=== PATIENT | female | born 1945 | race Caucasian/White ===

== ENCOUNTER 2016-06-18 11:19 | Day surgery (SDC) | payer MEDICARE ==
[2016-06-11 12:37] LABS: HEMATOCRIT 38.4 % (36.0-48.0); HEMOGLOBIN 12.2 g/dL (12.0-16.0)
[2016-06-11 12:51] LABS: BUN (BLOOD UREA NITROGEN) 19 MG/DL (6-23); CALCIUM, SERUM 8.4 MG/DL (8.5-10.4); CHLORIDE, SERUM 105 MMOL/L (96-112); CO2 (CARBON DIOXIDE) 28 MMOL/L (24-34); CREATININE 0.55 MG/DL (0.55-1.02); GFR AFRICAN AMERICAN 112 ML/MIN (>=60); GFR NON AFRICAN AMERICAN 96 ML/MIN (>=60); SODIUM, SERUM 142 MMOL/L (135-148)
[2016-06-11 12:52] LABS: GLUCOSE, SERUM 134 MG/DL (60-99); POTASSIUM, SERUM 3.4 MMOL/L (3.5-5.3)
[2016-06-11 13:23] LABS: ASCORBIC ACID (UR NOT ORDER) NEG (NEG); BILIRUBIN, URINE NEGATIVE (NEG); KETONE, URINE NEGATIVE (NEG); LEUKOCYTE ESTERASE(NOT OR MOD (NEG); WBC (NOT ORDERED) (RFLEX) 15 (0-5)
--- NOTE | ~2016-06-18 | OP ---
Record Of Operation [facility] [address] [place]. [address] NAME: BIJAL REYNOSO : 49 STATUS : [facility]#: [id number] AGE: 70 ADM/REG DATE : 06/18/16 MR#: [id number] REPORT SERV DATE: 06/18/16 DICTATED BY: SUNG BARGER DATE: 06/18/16 REPORT STATUS : Draft TRANSCRIBED BY: MODL DATE: 06/18/16 DATE OF PROCEDURE: 06/18/2016 SURGEON: Sung Barger M.D. TITLE OF OPERATION: Cystourethroscopy, left retrograde pyelogram, left ureteroscopy with laser lithotripsy, and placement of 6 x 24 left ureteral stent. PREOPERATIVE DIAGNOSIS: Left renal stone. POSTOPERATIVE DIAGNOSIS: Left renal stone. INDICATIONS: Ms. Reynoso is a very pleasant 70-year-old female, with a 1.3 cm lower pole left renal stone. She is here for therapy. ANESTHESIA: General. COMPLICATIONS: None. IMPLANT: 6 x 24 left ureteral stent. SPECIMENS: None. NARRATIVE: The patient was brought to the operating room, identified by her wristband. General anesthesia was induced and Ancef was given for preoperative antibiotics. She was placed in dorsal lithotomy position, prepped and draped in sterile fashion. A cystoscope was placed into her urethra and into her bladder. The bladder was inspected. There was no tumors or abnormalities. The left ureteral orifice was identified and cannulated with a Sensor wire. The stone was radio-opaque on fluoroscopy. A median access sheath was placed into her proximal ureter over the wire under fluoroscopic guidance. A flexible ureteroscope was then placed through the sheath and into the kidney. The kidney was systematically inspected. Her only abnormality was the 1.3 cm stone in the lower pole of her left kidney. Using 200 micron holmium laser fiber and a 100-watt laser, the stone was dusted into innumerable submillimeter pieces. There were no visible stone fragments on KUB. There was no stones larger than a millimeter visually either. The ureter was inspected. The sheath was removed. A Sensor wire was placed back up into the kidney. A 6 x 24 ureteral stent was placed in standard fashion. The proximal coil was seen to be coiled in the upper pole. The distal coil was coiled in the bladder under direct vision. The bladder was drained. The patient was awoken from anesthesia and transferred to the recovery room in stable condition. I will see her back in one week for cystoscopy and stent removal. SARAHY/CHENCHO Sung Gomez Record Of [address] [address] NAME: BIJAL REYNOSO : 49 STATUS : [facility] PAT#: [id number] AGE: 70 ADM/REG DATE : 06/18/16 MR#: [id number] REPORT SERV DATE: 06/18/16 DICTATED BY: SUNG BARGER DATE: 06/18/16 REPORT STATUS : Draft TRANSCRIBED BY: CHENCHO DATE: 06/18/16 MD Denita / [id number] CC: MD Trace Shen M.D.
[~2016-06-18 11:19] MED LIST: GLUMETZA500 MG PO; MOBIC7.5 PO; NEXIUM20 M1 PO; PRIN20 PO
== END 2016-06-18 16:52 | disposition home or self-care (01) ==
LOC: SDC 11:19
PROVIDERS: Urology
PROC: 0T778DZ Dilation of Left Ureter with Intraluminal Device, Via Natural or Artificial Opening Endoscopic (ICD-10-PCS; 2016-06-18)
PROC: BT1FZZZ Fluoroscopy of Left Kidney, Ureter and Bladder (ICD-10-PCS; 2016-06-18)
PROC: 0TF48ZZ Fragmentation in Left Kidney Pelvis, Via Natural or Artificial Opening Endoscopic (ICD-10-PCS; principal; 2016-06-18 12:45)
DX: N20.0 Calculus of kidney (principal); I10 Essential (primary) hypertension; I44.7 Left bundle-branch block, unspecified; E11.9 Type 2 diabetes mellitus without complications; G47.33 Obstructive sleep apnea (adult) (pediatric); M19.90 Unspecified osteoarthritis, unspecified site; K21.9 Gastro-esophageal reflux disease without esophagitis; M85.80 Other specified disorders of bone density and structure, unspecified site; Z79.1 Long term (current) use of non-steroidal anti-inflammatories (NSAID); Z79.84 Long term (current) use of oral hypoglycemic drugs; Z79.2 Long term (current) use of antibiotics; Z98.51 Tubal ligation status; Z87.442 Personal history of urinary calculi; Z90.710 Acquired absence of both cervix and uterus; Z90.711 Acquired absence of uterus with remaining cervical stump; Z98.890 Other specified postprocedural states
CPT/HCPCS: 74420; 80048; 81001; 82962; 85014; 85018; 87086; 93005; A9270-GY; C1758; C2617; J0690; J2250; J2405; J2710; J3010; Q9967